=== PATIENT | female | born 1980 | race Caucasian/White ===

== ENCOUNTER → 2016-11-26 | Outpatient (CLI) | payer BC ==
[2016-11-26 11:18] LABS: CH 30.1; CHCM 35.1; HCT 38.4 % (34.0-46.0); HGB 12.9 gm/dL (11.4-16.0); MCHC 33.6 g/dL (31.0-37.0); MCV 86.2 fL (80.0-100.0); Mean Platelet Volume 8.5; RBC 4.46 m/uL (3.80-5.40); RDW 13.1 % (11.5-15.5); WBC 7.7 k/uL (3.8-10.6)
[2016-11-26 12:30] LABS: Glucose 94 mg/dL (74-99); Non-African American GFR(MDRD) >60 (>60 ml/min/1.73 sqM)
[2016-11-26 13:01] LABS: Hepatitis B Surface Ag Index 0.05
[2016-11-27 04:50] LABS: Toxoplasma Antibody (IgG) <3.0 IU/mL (<7.2)
== END | disposition home or self-care (01) ==
LOC: LABWHC1 10:39
PROVIDERS: ATTEND Obstetrics & Gynecology
DX: Z34.81 Encounter for supervision of other normal pregnancy, first trimester (principal); Z3A.00 Weeks of gestation of pregnancy not specified
CPT/HCPCS: 36415; 82565; 82947; 85027; 86762; 86777; 86778; 86780; 86850; 86900; 86901; 87340

== ENCOUNTER → 2016-12-02 | Outpatient (CLI) | payer BC ==
--- NOTE | 2016-12-02 16:49 | US ---
EXAMINATION TYPE: US OB <= 14 wk fetus DATE OF EXAM: 12/02/2016 4:09 PM COMPARISON: NONE CLINICAL HISTORY: Confirm Dates Z36. confirm dates EXAM PERFORMED: Transabdominal (TA) EXAM MEASUREMENTS: GESTATIONAL AGE / DATING Physician Established: not established Dates by LMP: (11 weeks/2 days) EDC: 06/21/2017 Dates by First Scan: no prior Dates by Current Scan for: (10 weeks/3 days) EDC: 06/27/2017 MATERNAL ANATOMY Uterus: 14.2 x 7.6 x 8.0 cm Right Ovary: 3.4 x 3.0 x 2.6 cm Left Ovary: removed Post CDS / Adnexa: wnl Presence of free fluid: no Presence of corpus luteal cyst: wnl Presence of subchorionic bleed: no GESTATION / SURVEY CRL: 3.6 cm (10 weeks/3 days) MSD: 4.4cm (10 weeks/1 days) Yolk Sac (normal less than 6mm): placenta posterior Heart Rate: 163 bpm Rhythm: Normal IUP: Viable IUP Date of LMP: 09/14/2106 Beta HcG (if available): na TECHNOLOGIST IMPRESSION: viable IUP wnl IMPRESSION: 1. Single intrauterine gestation estimated at 10 weeks 3 days gestation. This would have a calculated EDC of 06/27/2017. 2. Cardiac activity measures 163 bpm.
== END | disposition home or self-care (01) ==
LOC: RADUSWWP 16:06
PROVIDERS: ATTEND Obstetrics & Gynecology
DX: Z36 Encounter for antenatal screening of mother (principal); Z3A.10 10 weeks gestation of pregnancy
CPT/HCPCS: 76801

== ENCOUNTER → 2017-01-31 | Outpatient (CLI) | payer BC ==
--- NOTE | 2017-01-31 13:46 | US ---
EXAMINATION TYPE: US OB anatomy transabd DATE OF EXAM: 01/31/2017 11:54 AM COMPARISON: NONE HISTORY: Large for Dates O36.62X0 TECHNIQUE: Transabdominal (TA) EXAM MEASUREMENTS: GESTATIONAL AGE / DATING Physician Established: (19 weeks/1 days) EDC: 06/26/17 Dates by LMP: unknown Dates by First Scan: unknown Dates by Current Scan for: (19 weeks/4 days) EDC: 06/23/17 SURVEY IUP: Single PLACENTA: Posterior PREVIA: No previa. The caudal placental margin measures approximately 4 cm from the internal cervical os. MARIA EUGENIA: 10.2 cm CERVICAL LENGTH (transabdominal: norm > 3.0cm): 3.3 cm BIOMETRY PRESENTATION: variable, breech at start vertex at end LIE: variable BPD: 4.2 cm 18 weeks / 6 days HC: 16.5 cm 19 weeks / 2 days AC: 15.2 cm 20 weeks / 3 days FL: 3.1 cm 20 weeks / 2 days ESTIMATED WEIGHT IN GRAMS: 321 grams ESTIMATED WEIGHT IN LBS/OZS: 0 lbs. 11 oz. WEIGHT PERCENTAGE BASED ON ESTABLISHED DATE: 87 % HC/AC: 1.1 FL/AC: 20 HEART RATE: 161 bpm RHYTHM: Normal ANATOMY SEEN (within normal limits): Lateral Vent (< 1 cm) 0.6 cm Cisterna Magna (< 1.1 cm) 0.2 cm Nuchal Fold (< 0.6 cm) 0.4 cm Cerebellum (varies with age) 1.9 cm Choroid Plexus (bilateral) Midline Falx Cavus Septi Pellucidi Four Chamber Heart Outflow tracts: LVOT Stomach Situs Nose / Lips Diaphragm Kidneys (bilateral) Bladder Three Vessel Cord Longitudinal Spine Transverse Spine Arms (bilateral) Legs (bilateral) Anatomy suboptimally visualized: RVOT Cord Insert IMPRESSION: 1. Single live intrauterine with established gestational age of 19 weeks 1 day. Current ult rasound biometry is concordant (19 weeks 4 days) placing the child at the 87th percentile for weight. 2. A couple structures on the survey were suboptimally visualized (RVOT, cord insertion). If de sired, the patient can be scheduled for a rescan of this anatomy. 3. The remaining structures appear within normal limits.
== END | disposition home or self-care (01) ==
LOC: RADUSWWP 10:52
PROVIDERS: ATTEND Obstetrics & Gynecology
DX: O36.62X0 Maternal care for excessive fetal growth, second trimester, not applicable or unspecified (principal); Z3A.19 19 weeks gestation of pregnancy
CPT/HCPCS: 76811

== ENCOUNTER → 2017-02-15 | Outpatient (CLI) | payer BC ==
--- NOTE | 2017-02-15 19:01 | US ---
EXAMINATION TYPE: US OB anatomy transabd DATE OF EXAM: 02/15/2017 3:12 PM COMPARISON: Recent US HISTORY: Z36 PREV ABN ULTRASOUND OR RE EVALUATION RVOT and cord insert were not seen on prior US. TECHNIQUE: Transabdominal (TA) EXAM MEASUREMENTS: GESTATIONAL AGE / DATING Physician Established: ( weeks/ day) EDC: 06/27/2017 Dates by LMP: unknown Dates by First Scan: (21 weeks/5 days) EDC: 06/23/2017 Dates by Current Scan for: ( weeks/) EDC: 06/27/2017 SURVEY IUP: Single PLACENTA: Posterior PREVIA: No previa MARIA EUGENIA: 10.7 cm Normal CERVICAL LENGTH (transabdominal: norm > 3.0cm): 3.7 cm BIOMETRY PRESENTATION: Vertex LIE: Longitudinal BPD: 5.0 cm weeks / 1 day HC: 19.4 cm 21 weeks / 4 days AC: 15.5 cm 20 weeks / 4 days FL: 3.6 cm 21 weeks / 3 days ESTIMATED WEIGHT IN GRAMS: 398.0 grams ESTIMATED WEIGHT IN LBS/OZS: 0 lbs. 14 oz. WEIGHT PERCENTAGE BASED ON ESTABLISHED DATE: 41.2 % HC/AC: 1.25 Normal FL/AC: 23.4 Normal HEART RATE: 144 bpm RHYTHM: Normal ANATOMY SEEN (within normal limits): * Lateral Vent (< 1 cm) 0.6 cm * Cisterna Magna (< 1.1 cm) 0.4 cm * Nuchal Fold (< 0.6 cm) 0.3 cm * Cerebellum (varies with age) 2.1 cm Choroid Plexus (bilateral) Midline Falx Cavus Septi Pellucidi Four Chamber Heart Outflow tracts: LVOT/RVOT Stomach Situs Diaphragm Kidneys (bilateral) Bladder Cord Insert Three Vessel Cord Longitudinal Spine Transverse Spine Legs (bilateral) ANATOMY NOT SEEN: Nose / Lips due to fetus facing spine Arms (bilateral) as downside arm not seen this US Possible gallbladder is seen on images #43 and #45. IMPRESSION: single, live, IUP, (21 weeks/1 day), EDC: 06/27/2017, HR 144bpm.
== END | disposition home or self-care (01) ==
LOC: RADUSWWP 14:11
PROVIDERS: ATTEND Obstetrics & Gynecology
DX: Z36 Encounter for antenatal screening of mother (principal); Z3A.21 21 weeks gestation of pregnancy
CPT/HCPCS: 76811

== ENCOUNTER → 2017-03-18 | Outpatient (CLI) | payer BC ==
[2017-03-18 09:24] LABS: CH 31.2; CHCM 36.2; HCT 33.8 % (34.0-46.0); HGB 12.1 gm/dL (11.4-16.0); MCHC 35.7 g/dL (31.0-37.0); MCV 86.9 fL (80.0-100.0); Mean Platelet Volume 8.5; Poikilocytosis Slight; RBC 3.89 m/uL (3.80-5.40); RDW 13.9 % (11.5-15.5); WBC 5.9 k/uL (3.8-10.6)
== END | disposition home or self-care (01) ==
LOC: LABWHC1 08:10
PROVIDERS: ATTEND Obstetrics & Gynecology
DX: Z34.82 Encounter for supervision of other normal pregnancy, second trimester (principal); Z3A.00 Weeks of gestation of pregnancy not specified
CPT/HCPCS: 36415; 82950; 85027

== ENCOUNTER → 2017-03-28 | Outpatient (CLI) | payer BC ==
[2017-03-28 12:40] LABS: Glucose 3 Hour, Gest 106 mg/dL
== END | disposition home or self-care (01) ==
LOC: LABWHC1 08:29
PROVIDERS: ATTEND Obstetrics & Gynecology
DX: O99.810 Abnormal glucose complicating pregnancy (principal); Z3A.00 Weeks of gestation of pregnancy not specified
CPT/HCPCS: 36415; 82951; 82952

== ENCOUNTER 2017-06-29 21:19 | Inpatient (IN) | payer BC ==
[2017-06-29] MEDS ORDERED: METHYLERGONOVINE 0.2 MG/ML 1 ML AMP IM PRN (21:38)
[2017-06-29] MEDS ORDERED: TERBUTALINE 1 MG/ML VIAL SQ PRN (21:38)
[2017-06-29] MEDS ORDERED: LIDOCAINE 1% (PF) 10 MG/ML (30 ML SDV) SQ PRN (21:38)
[2017-06-29] MEDS ORDERED: CARBOPROST TROMETHAMINE 250 MCG/ML 1 ML AMP IM PRN (21:38)
[2017-06-29] MEDS ORDERED: OXYTOCIN 10 UNIT/ML 1 ML VIAL IM PRN (21:38)
[2017-06-29] MEDS ORDERED: LACTATED RINGERS 1,000 ML IV SCH (21:45)
[2017-06-29 21:46] LABS: Basophils % (A) 0 %; CH 30.3; CHCM 36.4; Eosinophils # (A) 0.1 k/uL (0-0.7); Eosinophils % (A) 1 %; HCT 38.9 % (34.0-46.0); HDW 3.32; HGB 13.7 gm/dL (11.4-16.0); Luc # (Auto) 0.15; Luc % (Auto) 2; Lymphocytes % (A) 12 %; MCH 29.4 pg (25.0-35.0); MCHC 35.1 g/dL (31.0-37.0); MCV 83.8 fL (80.0-100.0); Mean Platelet Volume 10.2; Monocytes # (A) 0.3 k/uL (0-1.0); Monocytes % (A) 4 %; Neutrophils # (A) 6.8 k/uL (1.3-7.7); Neutrophils % (A) 81 %; RBC 4.64 m/uL (3.80-5.40); RDW 14.8 % (11.5-15.5); WBC 8.4 k/uL (3.8-10.6); WBC (Perox) 8.15
--- NOTE | 2017-06-29 22:25 | P.HPOB ---
History of Present Illness H&P Date: 06/29/17 Chief Complaint: Labor 37 year old presents at 40 weeks and 2 days in active labor. Her cervix is 6/100/-2. She is zain every 2 minutes. heart tones 135-140 with moderate variability and reactive. Review of Systems All systems: negative Constitutional: Denies chills, Denies fever Eyes: denies blurred vision, denies pain Ears, nose, mouth and throat: Denies headache, Denies sore throat Cardiovascular: Denies chest pain, Denies shortness of breath Respiratory: Denies cough Gastrointestinal: Denies abdominal pain, Denies diarrhea, Denies nausea, Denies vomiting Genitourinary: Denies dysuria, Denies hematuria Musculoskeletal: Denies myalgias Integumentary: Denies pruritus, Denies rash Neurological: Denies numbness, Denies weakness Psychiatric: Denies anxiety, Denies depression Endocrine: Denies fatigue, Denies weight change Past Medical History Past Medical History: No Reported History Additional Past Medical History / Comment(s): Obstetric history: She's had 5 spontaneous abortions, 5 vaginal deliveries. This is her 11th . She' s had care with me since 10 weeks gestation. Blood type is A+, antibodies negative, rubella immune, RPR nonreactive, hepatitis B negative, toxoplasmosis negative, normal anatomy ultrasound, declined quad testing, she had an abnormal 1 hour but a normal three-hour glucose tolerance test. She's had reactive NSTs weekly since 32 weeks. GBS negative. History of Any Multi-Drug Resistant Organisms: None Reported Additional Past Surgical History / Comment(s): ovary removed 2002 Additional Past Anesthesia/Blood Transfusion Reaction / Comment(s): nausea and vomiting during anesth Past Psychological History: No Psychological Hx Reported Smoking Status: Former smoker Past Alcohol Use History: None Reported Past Drug Use History: None Reported - Past Family History Father Family Medical History: Diabetes Mellitus Mother Family Medical History: No Reported History Medications and Allergies Home Medications Medication Instructions Recorded Confirmed Type Pnv with Ca,No.72/Iron/FA 1 tab PO DAILY 11/05/14 06/29/17 History [ Plus Tablet] Allergies Allergy/AdvReac Type Severity Reaction Status Date / Time No Known Allergies Allergy Verified 06/29/17 21:38 Exam Osteopathic Statement: *. No significant issues noted on an osteopathic structural exam other than those noted in the History and Physical/Consult. - Vital Signs Vital signs: Vital Signs Pulse Resp BP Pulse Ox 06/29/17 21:41 71 18 152/72 98 Intake and Output 06/29/17 06/29/17 06/29/17 06:59 14:59 22:59 Other: Weight 79.379 kg Patient Weight 06/30/17 06:59 Weight 79.379 kg Heart: RRR Lungs: CTAB Abdomen: soft, nontender Extremeties: neg mervin's Results Result Diagrams: 06/29/17 21:40 Assessment and Plan (1) Normal labor Status: Acute Plan: 1. admit to family 2. expectant management 3. anticipate normal vaginal delivery
[2017-06-29] MEDS ORDERED: IBUPROFEN 600 MG TAB PO PRN (22:50)
[2017-06-29] MEDS ORDERED: diphenhydrAMINE 50 MG CAP PO PRN (22:50)
[2017-06-29] MEDS ORDERED: BENZOCAINE/MENTHOL SPRAY 1 GM/SPRAY AEROSOL TOPICAL PRN (22:50)
[2017-06-29] MEDS ORDERED: Acetaminophen-Codeine 300-30mg TAB PO PRN ×2 (22:50)
[2017-06-29] MEDS ORDERED: diphenhydrAMINE 50 MG/ML 1 ML VIAL IVP PRN ×2 (22:50)
[2017-06-29] MEDS ORDERED: ZOLPIDEM 5 MG TAB PO PRN (22:50)
[2017-06-29] MEDS ORDERED: ACETAMINOPHEN TAB 325 MG TAB PO PRN (22:50)
[2017-06-29] MEDS ORDERED: HYDROCORTISONE 2.5% RECTAL CREAM 30 GM TUBE RECTAL PRN (22:50)
[2017-06-29] MEDS ORDERED: SIMETHICONE 80 MG CHEWABLE PO PRN (22:50)
[2017-06-29] MEDS ORDERED: WITCH HAZEL 1 EACH MED..PAD TOPICAL PRN (22:50)
[2017-06-29] MEDS ORDERED: diphenhydrAMINE 25 MG CAP PO PRN (22:50)
[2017-06-29] MEDS ORDERED: LANOLIN CREAM 5 GM TUBE TOPICAL PRN (22:50)
[2017-06-29] MEDS ORDERED: OXYTOCIN 20 UNITS/1000 ML NS 1,000 ML IV SCH (23:00)
--- NOTE | 2017-06-30 09:06 | P.PROBDLV ---
Vaginal Delivery Note - . Vaginal Delivery Note: 37-year-old G 11 P5 presented at 40 weeks and 2 days in active labor. Her cervix was 6-7 cm dilated, 90% effaced, and -2 station. She is zain every 2-4 minutes. heart tones 135-140 with moderate variability and reactive. Amniotomy was performed at 2155 and clear fluid noted. Her cervix was completely dilated at 2230. She pushed and delivered a viable female infant over intact perineum at 20-37. Head delivered OA, anterior shoulder delivered gentle downward traction followed by posterior shoulder and rest of body. Nose and mouth bulb suctioned, cord clamped and cut, infant placed mother 's abdomen. Apgars 8, 9, weight 7 lbs. 7 oz. Placenta delivered spontaneously , intact with three-vessel cord at 2240. Vagina, cervix, perineum inspected. No lacerations noted. Estimated blood loss 150 mL. Mother and baby in stable condition.
--- NOTE | 2017-06-30 09:08 | P.DS ---
Providers Date of admission: 06/29/17 21:30 Expected date of discharge: 06/30/17 Attending physician: Snow Myles Primary care physician: Stated None - Discharge Diagnosis(es) (1) Normal labor Current Visit: Yes Status: Resolved (2) Normal vaginal delivery Current Visit: No Status: Acute Hospital Course: Patient presented in active labor. She underwent normal vaginal delivery. course was uncomplicated. She'll be discharged home day # 1 in stable condition to follow-up with me in 6 weeks. Plan - Discharge Summary New Discharge Prescriptions: No Action Pnv with Ca,No.72/Iron/FA [ Plus Tablet] 1 tab PO DAILY Discharge Medication List Pnv with Ca,No.72/Iron/FA [ Plus Tablet] 1 tab PO DAILY 11/05/14 [ History] Follow up Appointment(s)/Referral(s): Snow Myles DO [Doctor of Osteopathic Medicine] - 6 Weeks Discharge Disposition: HOME SELF-CARE
[2017-06-30] MEDS: SENNOSIDES-DOCUSATE SODIUM 1 EACH TAB PO SCH ×2 (09:59→23:20)
[2017-06-30 23:19] VITALS: BP 128/72; PULSE 60; RESP 14; TEMP 98.3
== END 2017-06-30 23:20 | disposition home or self-care (01) | DRG 775 ==
LOC: FBPOP 21:19 → 4FBP 21:30
PROVIDERS: ADMIT Obstetrics & Gynecology; ATTEND Obstetrics & Gynecology
PROC: 10E0XZZ Delivery of Products of Conception, External Approach (ICD-10-PCS; principal; 2017-06-29)
PROC: 10907ZC Drainage of Amniotic Fluid, Therapeutic from Products of Conception, Via Natural or Artificial Opening (ICD-10-PCS; 2017-06-29)
DX: O80 Encounter for full-term uncomplicated delivery (principal); Z87.891 Personal history of nicotine dependence; Z37.0 Single live birth; Z3A.40 40 weeks gestation of pregnancy; Z83.3 Family history of diabetes mellitus
CPT/HCPCS: 85025; 88307

== ENCOUNTER 2018-12-05 22:02 | Emergency (ER) | payer BC ==
[2018-12-05 22:07] VITALS: BP 139/90; PULSE 61; RESP 18; TEMP 98.3
[2018-12-05] MEDS ORDERED: AMOXIC-POT CLAV 875MG STARTER 2 EACH TABLET PO STA (22:22)
--- NOTE | 2018-12-05 22:27 | ED ---
Animal Bite HPI - General Chief Complaint: Animal Bite Stated Complaint: Cat bite on face Time Seen by Provider: 12/05/18 22:10 Source: patient Mode of arrival: ambulatory Limitations: no limitations - History of Present Illness Initial Comments: Parul is a previously healthy 38-year-old female who comes to the emergency department today for evaluation of Bite to the left side of her face. Patient reports that earlier in the evening her cat became agitated because they are housesitting to dogs. Her cat jumped from a bookshelf on a chandelier and then jumped onto the patient and her on the left lower side of her jaw. Patient reports she began bleeding immediately, she washed the bite immediately and states that she tried to squeeze it to get it to bleed more to wash out any possible germs she. She then washed it with peroxide and soap and water. She reports that in the 4 hours since this occurred she's noticed worsening swelling of the area and when she looked it up online was advised that she needed antibiotics so she came to the ER for evaluation. Patient reports that the cat that bit her is her own personal Cat is fully vaccinated the cat was provoked at the time of the injury. - Related Data Home Medications Medication Instructions Recorded Confirmed L.acidoph,Paracasei, B.lactis 1 cap PO DAILY 12/05/18 12/05/18 [Probiotic] Multivitamins, Thera [Multivitamin 1 tab PO DAILY 12/05/18 12/05/18 (formulary)] Gans-3 Fatty Acids/Fish Oil [Fish 1 cap PO DAILY 12/05/18 12/05/18 Oil 1,000 mg Softgel] Previous Rx's Medication Instructions Recorded Amoxicillin/Potassium Clav 1 tab PO Q12HR #12 tab 12/05/18 [Augmentin 875-125 Tablet] Allergies Allergy/AdvReac Type Severity Reaction Status Date / Time No Known Allergies Allergy Verified 12/05/18 22:45 Review of Systems ROS Statement: Those systems with pertinent positive or pertinent negative responses have been documented in the HPI. ROS Other: All systems not noted in ROS Statement are negative. Past Medical History Past Medical History: No Reported History Additional Past Medical History / Comment(s): OB history G11P 6 0 5 6 History of Any Multi-Drug Resistant Organisms: None Reported Additional Past Surgical History / Comment(s): ovary removed 2002 Additional Past Anesthesia/Blood Transfusion Reaction / Comment(s): nausea and vomiting during anesth Past Psychological History: No Psychological Hx Reported Smoking Status: Former smoker Past Alcohol Use History: None Reported Past Drug Use History: None Reported - Past Family History Father Family Medical History: Diabetes Mellitus Mother Family Medical History: No Reported History General Exam - General Exam Comments Initial Comments: Physical Exam GENERAL: Patient is well-developed and well-nourished. Patient is nontoxic and well-hydrated and is in no distress. HENT: Normocephalic Swelling to soft tissues overlying the left lateral mandible EYES: PERRL, EOMI PULMONARY: Unlabored respirations. CARDIOVASCULAR: RRR ABDOMEN: Nondistended SKIN: 2 small puncture wounds overlying the left lateral mandible, no active bleeding no purulence : Deferred NEUROLOGIC: Patient is alert and oriented x3. Moving all extremities spontaneously MUSCULOSKELETAL: Normal extremities with adequate strength and full range of motion. No lower extremity swelling or edema. No calf tenderness. PSYCHIATRIC: Normal psychiatric evaluation. Limitations: no limitations Limitations: no limitations Course Vital Signs 12/05/18 22:03 Temperature 98.3 F Pulse Rate 61 Respiratory 18 Rate Blood Pressure 139/90 O2 Sat by Pulse 97 Oximetry Medical Decision Making - Medical Decision Making She was seen and evaluated patient was bitten by her cat approximately 45 hours prior to arrival she then noticed some swelling and pain dropped her to come to the ER X-rays were ordered to rule out any retained foreign body Augmentin was initiated Disposition Clinical Impression: Cat bite Disposition: HOME SELF-CARE Instructions (If sedation given, give patient instructions): Animal Bite (ED) Prescriptions: Amoxicillin/Potassium Clav [Augmentin 875-125 Tablet] 1 tab PO Q12HR #12 tab Is patient prescribed a controlled substance at d/c from ED?: No Referrals: None,Stated [Primary Care Provider] - 1-2 days Time of Disposition: 22:54
--- NOTE | 2018-12-05 23:31 | XR ---
EXAM: XR Face Complete, 3 or More Views CLINICAL HISTORY: ITS.REASON XR Reason: cat bite to left lower jaw TECHNIQUE: Frontal, lateral and oblique views of the face. COMPARISON: No relevant prior studies available. FINDINGS: Bones/joints: Unremarkable. No definite fracture. Sinuses: Unremarkable. No air-fluid levels. Soft tissues: Soft tissue swelling at the inferior aspect of the left mandible. No radiopaque foreign body. IMPRESSION: No acute fracture or radiopaque foreign body. Soft tissue swelling in the area of clinical concern at the inferior aspect of the left mandible.
== END 2018-12-05 22:58 | disposition home or self-care (01) ==
LOC: EC 22:02
DX: S01.85XA Open bite of other part of head, initial encounter (principal); Z87.891 Personal history of nicotine dependence; Z79.899 Other long term (current) drug therapy; W55.01XA Bitten by cat, initial encounter
CPT/HCPCS: 70140; 99283

== ENCOUNTER → 2022-06-25 | Outpatient (CLI) | payer BC ==
--- NOTE | 2022-06-25 08:48 | MM ---
Reason for Exam: Clinical finding. Patient History: Menarche at age 8. First Full-Term at age 17. Right ovary removed at age 23. Paternal grandmother had breast cancer, age 58. Risk Values: Jenna 5 year model risk: 0.5%. NCI Lifetime model risk: 6.5%. Tissue Density: The breast tissue is heterogeneously dense. This may lower the sensitivity of mammography. Findings: Analyzed By CAD. Within the left breast medial aspect is a 6 mm nodule 7 cm from the nipple. This appears to be poorly visualized on the mediolateral oblique view. Ultrasound lower inner quadrant is recommended. There are 2 nodular densities within the outer right cranial caudal view measuring 0.4 cm and 1.3 cm. These are roughly 10 cm from the nipple outer aspect. These may be at approximately 8 to 9:00 position. Overall Assessment: Incomplete: need additional imaging evaluation, BI-RAD 0 Management: Diagnostic Breast Ultrasound of both breasts. A negative mammogram report should not preclude additional follow up of suspicious palpable abnormalities. Patient should continue monthly self breast exam. A clinical breast exam by your physician is recommended on an annual basis and results should be correlated with mammographic findings. Electronically signed and approved by: Blair Burns D.O. Radiologis
--- NOTE | 2022-06-25 09:19 | USB ---
Reason for Exam: Clinical finding. Patient History: Menarche at age 8. First Full-Term at age 17. Right ovary removed at age 23. Paternal grandmother had breast cancer, age 58. Risk Values: Jenna 5 year model risk: 0.6%. NCI Lifetime model risk: 7.7%. Technique: Method: Targeted. Findings: The lateral section of the breast of the right breast, the lower inner quadrant of the left breast, the axilla of both breasts and the retroareolar of both breasts were scanned. Right breast: 10 cm from the nipple 10:00 position there is a 1.4 x 1.0 x 1.2 cm solid lesion which has some mild through transmission and internal vascularity. There is a nearby small 0.7 x 0.4 x 0.7 cm hypoechoic area. This is too small classified. This does have some good through transmission and posterior wall enhancement suggesting cyst. Left breast: No discrete solid or cystic areas are evident correlate with the mammographic findings. Overall Assessment: Suspicious, BI-RAD 4 Management: Ultrasound Core Biopsy of the right breast. Diagnostic Mammogram of the left breast in 6 months. A clinical breast exam by your physician is recommended on an annual basis and results should be correlated with mammographic findings. Electronically signed and approved by: Blair Burns D.O. Radiologis
== END | disposition home or self-care (01) ==
LOC: RADMAMWWP 08:05
PROVIDERS: ATTEND Family Medicine
DX: N63.24 Unspecified lump in the left breast, lower inner quadrant (principal); Z80.3 Family history of malignant neoplasm of breast; Z90.721 Acquired absence of ovaries, unilateral
CPT/HCPCS: 77062; 77066

== ENCOUNTER → 2022-07-07 | Day surgery (SDC) | payer BC ==
--- NOTE | 2022-07-07 09:56 | MM ---
Reason for Exam: Post Procedure Mammogram. Last screening mammogram was performed less than 1 month ago. Patient History: Menarche at age 8. First Full-Term at age 17. Right ovary removed at age 23. Paternal grandmother had breast cancer, age 58. Risk Values: Jenna 5 year model risk: 0.6%. NCI Lifetime model risk: 7.7%. Prior Study Comparison: 06/25/2022 Bilateral US breast limited [facility], [facility]. 06/25/2022 Bilateral MG 3D diag mammo w/cad [facility], [facility]. Tissue Density: Right: There are scattered fibroglandular densities. Findings: Biopsy clip seen in the area of prior mass. There is a small hematoma noted. Overall Assessment: Benign, BI-RAD 2 Management: Screening Mammogram of both breasts in 1 year. A small hematoma with biopsy clip in appropriate position. Pending pathology. A clinical breast exam by your physician is recommended on an annual basis and results should be correlated with mammographic findings. This exam should not preclude additional follow-up of suspicious palpable abnormalities. Results were given to the patient verbally at the time of exam. Electronically signed and approved by: Kvng Schwarz DO
--- NOTE | 2022-07-07 10:07 | USB ---
Risk Values: Jenna 5 year model risk: 0.6%. NCI Lifetime model risk: 7.7%. Prior Study Comparison: 06/25/2022 Bilateral MG 3D diag mammo w/cad [facility], [facility]. Pathology Description: Needle Type: VaD Cores: 3 Hematoma, pressure applied for 10 minutes, remained the same size throughout. The procedure of ultrasound guided core biopsy was explained to the patient. Benefits, alternatives, and risks were discussed. An informed consent was then obtained. The patient was placed in supine positioning for imaging and for the procedure. The overlying skin was prepped and draped in usual sterile fashion. Lidocaine buffered with epinephrine was used as anesthetic into the skin and subcutaneous tissue up to area of concern in the right breast. A priscilla was made with surgical scalpel. Under ultrasound guidance, a 12 vacuum assisted biopsy gun device was used to obtain one core samples. Then a 18-gauge biopsy and was 3 core samples taken. Then a biopsy clip was left in lesion. The patient tolerated the procedure well without any immediate complication. The patient was kept in the radiology department for short stay after the procedure and then discharged home in stable condition. Postprocedure mammogram: The patient was transferred to mammography for physician ordered post procedure mammogram for clip placement verification. Small hematoma was noted. Impression: Successful, uncomplicated ultrasound guided core biopsy of area of concern in the right breast, full pathology results to follow. Pathology Results: Results pending. Electronically signed and approved by: Kvng Schwarz DO
== END ==
LOC: RADUSWWP 07:41
PROVIDERS: ATTEND Family Medicine
DX: D24.1 Benign neoplasm of right breast (principal); N60.11 Diffuse cystic mastopathy of right breast; R92.8 Other abnormal and inconclusive findings on diagnostic imaging of breast; N64.89 Other specified disorders of breast
CPT/HCPCS: 88305; 77065; 19083; A4648

== ENCOUNTER → 2024-03-26 | Outpatient (CLI) | payer BC ==
[2024-03-26 16:29] LABS: Basophils # (A) 0.03 X 10*3/uL (0.00-0.10); Basophils % (A) 0.6 %; Eosinophils # (A) 0.08 X 10*3/uL (0.04-0.35); Eosinophils % (A) 1.6 %; HCT 40.3 % (37.2-46.3); HGB 13.3 g/dL (12.0-15.0); Lymphocytes # (A) 0.82 X 10*3/uL (0.90-5.00); Lymphocytes % (A) 16.5 %; Mean Platelet Volume 11.6 FL (9.5-12.2); Monocytes # (A) 0.26 X 10*3/uL (0.20-1.00); Monocytes % (A) 5.2 %; NRBC Per 100 WBC 0 X 10*3/uL (0.00-0.01); Neutrophils # (A) 3.78 X 10*3/uL (1.80-7.70); Neutrophils % (A) 75.9 %; Platelet Count 228 X 10*3/uL (140-440); RBC 4.58 X 10*6/uL (4.10-5.20); RDW 12.6 % (11.5-14.5); WBC 4.98 X 10*3/uL (4.50-10.00)
[2024-03-26 16:30] LABS: % Iron Saturation 19.84 (12.00-45.00); ALT 19 U/L (8-44); AST 20 U/L (13-35); Albumin 4.6 g/dL (3.8-4.9); Alkaline Phosphatase 43 U/L (41-126); BUN/Creat Ratio 23.62 Ratio (12.00-20.00); Blood Urea Nitrogen 18.9 mg/dL (9.0-27.0); Calcium 9.7 mg/dL (8.7-10.3); Carbon Dioxide 25.3 mmol/L (21.6-31.8); Chloride 105 mmol/L (96-109); Chol/HDL Ratio 2.72 Ratio; Globulin 2.3 g/dL (1.6-3.3); Glucose 100 mg/dL (70-110); Iron 73 UG/DL (50-170); LDL Cholesterol,Calculated 113.6 mg/dL (0.0-131.0); Magnesium 1.8 mg/dL (1.5-2.4); Potassium 3.9 mmol/L (3.5-5.5); Sodium 141 mmol/L (135-145); T4, Free (Free Thyroxine) 1.18 ng/dL (0.80-1.80); Total Bilirubin 0.9 mg/dL (0.3-1.2); Total Iron Binding Capacity 368 UG/DL (228-460); Total Protein 6.9 g/dL (6.2-8.2); VLDL Calculation 9.14 mg/dL (5.00-40.00)
== END | disposition home or self-care (01) ==
LOC: LABWHC1 08:26
PROVIDERS: ATTEND Family Medicine
DX: Z00.00 Encounter for general adult medical examination without abnormal findings (principal); E61.1 Iron deficiency; D51.9 Vitamin B12 deficiency anemia, unspecified; G47.62 Sleep related leg cramps; R73.9 Hyperglycemia, unspecified
CPT/HCPCS: 36415; 80053; 80061; 82607; 83036; 83540; 83550; 83735; 84439; 84443; 85025